=== PATIENT | male | born 1995 | race Caucasian/White ===

== ENCOUNTER 2022-03-07 00:49 | Emergency (ER) | payer MEDICAID, SELFPAY ==
[2022-03-07 00:52] VITALS: BP 123/82; PULSE 55; RESP 18; TEMP 37.1; O2SAT 99; BMI 25.7
--- NOTE | 2022-03-07 01:21 | HMH.EDEYEP ---
ED Disposition Clinical Impression: Corneal abrasion Qualifiers: Encounter type: initial encounter Laterality: unspecified laterality Qualified Code(s): S05.00XA - Injury of conjunctiva and corneal abrasion without foreign body, unspecified eye, initial encounter Disposition: Home, Self-Care Condition on Discharge: Good Instructions: DI for Corneal Abrasion Additional Instructions: see dr spring this - [phone] Referrals: Provider,Referral, MD [Primary Care Provider] - - Critical Care Critical Care Time: No Attestation: On 03/07/22, the high probability of a clinically significant, sudden or life threatening deterioration of the following system(s) required my full and direct attention, intervention and personal management. The time I documented below is in addition to time spent performing reported procedures but includes the following listed in this critical care notation. Medical Decision Making - Medical Records Medical records reviewed: Yes: I reviewed the patient's medical records. - Cleve Inquiry Pt receiving controlled substance: No Vital Signs: 03/07/22 00:52 Temperature 98.7 F Temperature Source Oral Pulse Rate [Right] 55 L Respiratory Rate 18 Blood Pressure [Right Arm] 123/82 Blood Pressure Mean [Right Arm] 95 02 Sat by Pulse Oximetry 99 - Lab Data Lab results reviewed: Yes: I reviewed the patient's lab results. Orders (Tests/Meds): ED MEDICATIONS Generic Name Dose Route Start Last Admin Trade Name Freq PRN Reason Stop Dose Admin Fluorometholone 1 ml 03/07/22 09:00 03/07/22 01:53 Fluorometholone 0.1% Opth Susp 5ml OP 04/06/22 08:59 1 ml BID ALEXIA Administration Discontinued Medications Generic Name Dose Route Start Last Admin Trade Name Freq PRN Reason Stop Dose Admin Neomycin/Polymyxin/Bacitracin 1 gm 03/07/22 01:50 03/07/22 01:53 Oxmraqpl-Ljfiy-Mjdqu Ophth Oint 3.5gm Tube OP 03/07/22 01:51 1 gm ONCE ONE Administration Tetracaine HCl 1 ml 03/07/22 01:50 03/07/22 01:54 Tetracaine 0.5% Opth Zaina 15ml OP 03/07/22 01:51 1 ml ONCE ONE Administration Medical Decision Narrative: abrasion and see eye center this am Eye Problem HPI - General Chief complaint: Eye Problems Stated complaint: Bilateral eye pain; feels like sand in them Time Seen by Provider: 03/07/22 01:00 Mode of Arrival: Ambulatory Source of Information: Patient, Medical Record Limitations: No Limitations Description of Symptoms (Recalled from ER Triage Doc. by RN): pt states was cleaning up a melted rubber ball and thinks got some on hands and rubbed eyes. pt woke up about 30 mins prior to arrival and unable to open eyes. pt states feels like there is sand in eyes - History of Present Illness HPI Narrative: bilat eye pain which started tonight chief complaint: eye pain, foreign body Onset (ago): hour(s) Onset description: gradual Duration: constant Location: both eyes Eye Symptoms: burning, foreign body sensation Place: home Severity: moderate Associated symptoms: none Treatments Prior to Arrival: none - Related Data Allergies Allergy/AdvReac Type Severity Reaction Status Date / Time No Known Allergies Allergy Verified 03/07/22 01:50 [facility] History - Hepatitis A Screen Attestation statement:: This patient has been screened for Hepatitis A risk factors. I have reviewed the patient's past medical history: Yes ROS Obtained: Yes All systems reviewed & no additional complaints - Constitutional Constitutional: Denies fever(s) - Eyes Eyes: Reports as per HPI, Reports other (fb sensation ) - ENT Ears, Nose, Mouth, and Throat: Denies sore throat - Cardiovascular Cardiovascular: Denies chest pain - Respiratory Respiratory: Denies shortness of breath - Gastrointestinal Gastrointestingal: Denies: abdominal pain - Genitourinary Male Genitourinary: Denies hematuria - Musculoskeletal Musculoskeletal: Denies joint pain - Integum
[2022-03-07 01:57] VITALS: BP 122/74; PULSE 54; RESP 18; TEMP 37.1; O2SAT 99
== END 2022-03-07 02:01 | disposition home or self-care (01) ==
PROVIDERS: Emergency Provider Emergency Medicine
DX: S05.02XA Injury of conjunctiva and corneal abrasion without foreign body, left eye, initial encounter (principal); S05.01XA Injury of conjunctiva and corneal abrasion without foreign body, right eye, initial encounter
CPT/HCPCS: 99283

== ENCOUNTER 2022-09-02 21:00 | Emergency (ER) | payer OTHER, MEDICAID, SELFPAY ==
[2022-09-02 21:29] VITALS: BP 121/83; PULSE 86; RESP 18; TEMP 36.5; O2SAT 97; BMI 27.1
--- NOTE | 2022-09-02 21:33 | PC.NURSE ---
Spoke with Anastasia Wright at [facility]. Per Anastasia, patient will need a basic staining of their eyes to check for stain uptake. If there is stain uptake than the patient will need antibiotic eye drops with a follow up in the AM with opthamology.
--- NOTE | 2022-09-02 21:45 | PC.NURSE ---
Patient visual acquity is a 20/25 on left eye and a 20/20 on right eye
--- NOTE | 2022-09-02 21:51 | HMH.EDEYEP ---
Discharge Plan Disposition Patient Disposition: Home, Self-Care Prescriptions Prescriptions: No Action No Known Home Medications Referrals Follow up/Referrals: Provider,Referral, MD [Primary Care Provider] - See instructions Clinical Impressions Clinical Impression: Corneal abrasion, Chemical exposure Instructions Patient Instructions: DI for Corneal Abrasion, DI for Chemical Eye Burn Discharge ED Provider: Rafia (ED)Isaiah Eye Problem HPI General Chief complaint: Eye Problems Stated complaint: AO02/15@1500 Foam fr Can In eyes Time Seen by Provider: 09/02/22 21:51 Mode of Arrival: Ambulatory Source of Information: Patient and Medical Record Limitations: No Limitations Description of Symptoms (Recalled from ER Triage Doc. by RN): Pt states that he was insulating his windows earlier this afternoon when a can of spray foam insulation's lid exploded and he believes that he got insulation in his eyes. This occured at 1500 and he has had eye redness since then. Says he did not have any insulation in his eyelashes that he noticed. Is able to see but says he feels like hes looking through smoke in his left eye. History of Present Illness HPI Narrative: insulation foam sprayed into eyes this afternoon and despite washing eyes out has pain lt>rt - no contacts MD chief complaint: eye injury and foreign body Onset (ago): hour(s) Onset description: gradual Duration: constant Location: both eyes Eye Symptoms: burning and decreased vision Place: home Mechanism: chemical exposure Severity: moderate Associated symptoms: none Treatments Prior to Arrival: OTC eye drops Related Data Home Medications Medication Instructions Recorded Confirmed No Known Home Medications 09/02/22 09/02/22 Allergies Allergy/AdvReac Type Severity Reaction Status Date / Time No Known Allergies Allergy Verified 03/07/22 01:50 [facility] Disclaimer: The information contained in this section may have been updated after the patient was seen, as this information can be updated by other users. Social History Smoking Status: Current every day smoker alcohol intake: never current occupational status: employed Travel in the last 8 weeks: None ROS Obtained: Yes All systems reviewed & no additional complaints except as documented Physical Exam General General appearance: alert Head Head exam: normocephalic Eye Eye exam: Present PERRL, EOMI and other (has flurostain lt eye ) ENT ENT exam: Present mucous membranes moist Neck Neck exam: Present trachea midline Respiratory Respiratory exam: Absent respiratory distress Cardiovascular Cardiovascular exam: Present regular rate Extremities Exam Extremities exam: Present full ROM Neurological Exam Neurological exam: Present alert, oriented X3 and CN II-XII intact Psychiatric Psychiatric exam: Present normal affect Skin Skin exam: Absent rash Medical Decision Making Medical Records Medical records reviewed: Yes I reviewed the patient's medical records. Cleve Inquiry Pt receiving controlled substance: No Vital Signs: 09/02/22 21:29 Temperature 97.7 F Temperature Source Oral Pulse Rate [Apical] 86 Respiratory Rate 18 Blood Pressure [Right Arm] 121/83 Blood Pressure Mean [Right Arm] 95 Blood Pressure Source [Right Arm] Automatic Cuff Blood Pressure Position [Right Arm] Sitting 02 Sat by Pulse Oximetry 97 Oxygen Delivery Method Room Air Medical Decision Narrative: has chemical exposure discussed with poison control and has fluro stain lt eye Procedures Eye Exam/FB Removal Topical anesthetic used: tetracaine Fluorescein Stick(s) used: Yes Time Out performed: Yes Procedure performed under: direct visualization with magnification Post-procedure medication: ophthalmic antibiotic Complications: other (abrasion) Critical Care Time Critical Care Time Critical Care Time: No Attestation: On 09/02/22, the high probability of a clinically signif
[2022-09-02 22:09] VITALS: BP 129/71; PULSE 76; RESP 18; TEMP 36.7; O2SAT 98
== END 2022-09-02 22:14 | disposition home or self-care (01) ==
PROVIDERS: Emergency Provider Emergency Medicine
DX: S05.02XA Injury of conjunctiva and corneal abrasion without foreign body, left eye, initial encounter (principal); X58.XXXA Exposure to other specified factors, initial encounter; Z77.098 Contact with and (suspected) exposure to other hazardous, chiefly nonmedicinal, chemicals; F17.210 Nicotine dependence, cigarettes, uncomplicated
CPT/HCPCS: 99283; 99284